=== PATIENT | male | born 1935 | race Caucasian/White ===

== ENCOUNTER 2018-04-26 14:14 | Outpatient (CLI) | payer MEDICARE ==
[2018-04-26 18:12] LABS: ALBUMIN 4.2 g/dL (3.2-5.5); ALBUMIN/GLOBULIN RATIO 1.6 (1.0-2.2); BILIRUBIN,TOTAL 0.8 mg/dL (0.2-1.0); CREATININE 0.8 mg/dL (0.6-1.2); TOTAL PROTEIN 6.9 g/dL (6.7-8.2)
== END 2018-04-26 14:15 | disposition home or self-care (01) ==
LOC: LAB.F 14:14
PROVIDERS: ATTEND Internal Medicine
DX: I10 Essential (primary) hypertension (principal)
CPT/HCPCS: 36415; 80053

== ENCOUNTER 2019-12-06 08:00 | Outpatient (CLI) | payer MEDICARE ==
[2019-12-06 18:03] LABS: BASOPHILS # (AUTO) 0.1 10^3/uL (0.0-0.1); BASOPHILS % (AUTO) 1.1 %; EOSINOPHILS # (AUTO) 0.1 10^3/uL (0.0-0.7); HGB - HEMOGLOBIN 14.5 g/dL (14.0-18.0); LYMPHOCYTES # (AUTO) 1.7 10^3/uL (1.5-3.5); LYMPHOCYTES % (AUTO) 36.4 %; MEAN CORPUSCULAR HEMOGLOBIN 31.1 pg (27.0-31.0); MEAN CORPUSCULAR HGB CONC 32.6 g/dL (32.0-36.0); MEAN CORPUSCULAR VOLUME 95.5 fL (80.0-94.0); MEAN PLATELET VOLUME 10.9 fL (7.4-11.4); MONOCYTES # (AUTO) 0.8 10^3/uL (0.0-1.0); NEUTROPHILS % (AUTO) 43.1 %; PLT - PLATELET COUNT 214 10^3/uL (130-450); RED BLOOD COUNT 4.66 10^6/uL (4.70-6.10); RED CELL DISTRIBUTION WIDTH 12.1 % (12.0-15.0); WHITE BLOOD COUNT 4.6 x10^3/uL (4.8-10.8)
[2019-12-06 18:20] LABS: ALBUMIN 3.9 g/dL (3.2-5.5); ALBUMIN/GLOBULIN RATIO 1.4 (1.0-2.2); ALKALINE PHOSPHATASE 50 IU/L (42-121); ALT ALANINE AMINOTRANSFERASE 13 IU/L (10-60); AST ASPARTATE AMINOTRANSFERASE 26 IU/L (10-42); BILIRUBIN,TOTAL 1.2 mg/dL (0.2-1.0); BUN - BLOOD UREA NITROGEN 16 mg/dL (6-20); CARBON DIOXIDE - CO2 28 mmol/L (21-32); CHLORIDE 101 mmol/L (101-111); CHOLESTEROL 146 mg/dL; CREATININE 0.9 mg/dL (0.6-1.2); GLUCOSE 107 mg/dL (70-100); HDL CHOLESTEROL 48 mg/dL; LDL CHOLESTEROL,CALCULATED 87 mg/dL; LDL/HDL RATIO 1.8 (<3.6); SODIUM 137 mmol/L (135-145); TOTAL PROTEIN 6.7 g/dL (6.7-8.2); VLDL CHOLESTEROL 11 mg/dL
== END 2019-12-06 23:59 | disposition home or self-care (01) ==
LOC: LAB.WCP 08:00
PROVIDERS: ATTEND Physician Assistant
DX: I10 Essential (primary) hypertension (principal); Z79.899 Other long term (current) drug therapy; R53.83 Other fatigue
CPT/HCPCS: 36415; 80053; 80061; 83721; 84443; 85025

== ENCOUNTER 2020-03-06 08:40 | Emergency (ER) | payer MEDICARE ==
--- NOTE | 2020-03-06 08:47 | ED Physician Documentation ---
History of Present Illness - Stated complaint Stated Complaint: RAPID HEART BEAT - History obtained from History obtained from: Patient - History of Present Illness Timing: Yesterday - Additonal information Additional information: 84-year-old male went to take his blood pressure yesterday morning and noted that his heart rate was 150. He has felt a little bit faint and is not doing as much as he normally does he has not had chest pain associated with this. He has not had a rapid heart rate like this previously and does not have any prior history of atrial fibrillation. He has a history of hypertension and has recently been changed to losartan from enalapril. He takes some hydrochlorothiazide as well. Review of Systems Constitutional: denies: Fever Eyes: denies: Decreased vision Ears: denies: Ear pain Nose: denies: Congestion Throat: denies: Sore throat Cardiac: reports: Chest pain / pressure, Palpitations. denies: Pedal edema, Calf pain Respiratory: reports: Cough. denies: Dyspnea GI: denies: Abdominal Pain, Nausea, Vomiting : denies: Dysuria, Frequency, Hesitancy Skin: denies: Rash Musculoskeletal: denies: Neck pain, Back pain, Extremity pain PD PAST MEDICAL HISTORY - Present Medications Home Medications: Ambulatory Orders Medication Instructions Recorded Confirmed Brimonidine 0.2% Ophth Drops 1 drops OP DAILY 03/06/20 03/06/20 [Alphagan P 0.2% Ophth Drops] Dorzolamide 2% Ophth Drops 1 drops OP DAILY 03/06/20 03/06/20 [Trusopt 2% Ophth Drops] Hydrochlorothiazide 12.5 mg PO DAILY 03/06/20 03/06/20 Loratadine [Claritin] 10 mg PO PRN PRN 03/06/20 03/06/20 Losartan Potassium 50 mg PO DAILY 03/06/20 03/06/20 - Allergies Allergies/Adverse Reactions: Allergies Allergy/AdvReac Type Severity Reaction Status Date / Time No Known Drug Allergies Allergy Verified 03/06/20 09:03 PD ED PE NORMAL - Vitals Vital signs reviewed: Yes (tachy, tachypneic and hypertensive ) - General General: Alert and oriented X 3, No acute distress, Well developed/nourished - HEENT HEENT: Atraumatic, PERRL, EOMI - Neck Neck: Supple, no meningeal sign, No bony TTP - Cardiac Cardiac: No murmur, Other (tachy to 150) - Respiratory Respiratory: No respiratory distress, Clear bilaterally - Abdomen Abdomen: Normal bowel sounds, Soft, Non tender, Non distended, No organomegaly - Back Back: No CVA TTP, No spinal TTP - Derm Derm: Normal color, Warm and dry, No rash - Extremities Extremities: No deformity, No edema - Neuro Neuro: Alert and oriented X 3, chief unit forester 2-12 intact, No motor deficit, No sensory deficit, Normal speech Eye Opening: Spontaneous Motor: Obeys Commands Verbal: Oriented GCS Score: 15 - Psych Psych: Normal mood, Normal affect Results - Vitals Vitals: Vital Signs - 24 hr 03/06/20 03/06/20 03/06/20 08:52 09:05 09:10 Temperature 36.3 C L Heart Rate 152 H 133 H 76 Respiratory 28 H 18 14 Rate Blood Pressure 169/120 H 143/94 H 116/74 O2 Saturation 98 96 96 03/06/20 03/06/20 03/06/20 09:14 09:16 09:21 Temperature Heart Rate 77 78 124 H Respiratory 16 16 14 Rate Blood Pressure 115/76 112/97 H 131/84 H O2 Saturation 94 94 94 03/06/20 03/06/20 03/06/20 09:27 09:31 09:42 Temperature Heart Rate 140 H 76 69 Respiratory 18 18 22 Rate Blood Pressure 136/91 H 148/81 H 121/72 O2 Saturation 93 94 96 03/06/20 03/06/20 03/06/20 09:48 10:05 10:43 Temperature Heart Rate 64 66 87 Respiratory 19 20 16 Rate Blood Pressure 124/82 H 111/84 H 124/81 H O2 Saturation 95 93 95 03/06/20 11:35 Temperature 36.5 C Heart Rate 80 Respiratory 20 Rate Blood Pressure 145/90 H O2 Saturation 96 Oxygen O2 Source Room air - EKG (time done) 0855 Rate: Rate (enter#) (128) Rhythm: Atrial flutter Ischemia: Q waves Compare to prior EKG: Old EKG unavailable Computer interpretation: Disagree with computer (I do not see ventricular complexes suggesting V-tach looks like flutter waves. ) - Labs Labs: Laboratory Tests 03/06/20 03/06/20 03/06/20 08:49 08:49 08:49 WBC 7.8 RBC 5.21 Hgb 16.6 Hct 49.4 MCV 94.8 H MCH 31.9 H MCHC 33.6 RDW 12.0 Plt Count 228 MPV 10.4 Neut # (Auto) 3.6 Lymph # (Auto) 2.7 Cameron # (Auto) 1.2 H Eos # (Auto) 0.2 Baso # (Auto) 0.1 Absolute Nucleated RBC 0.00 Nucleated RBC % 0.0 Sodium 137 Potassium 3.4 L Chloride 99 L Carbon Dioxide 27 Anion Gap 11.0 BUN 18 Creatinine 1.0 Estimated GFR (MDRD) 72 L Glucose 128 H Calcium 9.3 Total Bilirubin 0.9 AST 26 ALT 16 Alkaline Phosphatase 62 Troponin I High Sens 10.4 B-Natriuretic Peptide Total Protein 7.1 Albumin 4.2 Globulin 2.9 Albumin/Globulin Ratio 1.4 Lipase 51 03/06/20 08:49 WBC RBC Hgb Hct MCV MCH MCHC RDW Plt Count MPV Neut # (Auto) Lymph # (Auto) Cameron # (Auto) Eos # (Auto) Baso # (Auto) Absolute Nucleated RBC Nucleated RBC % Sodium Potassium Chloride Carbon Dioxide Anion Gap BUN Creatinine Estimated GFR (MDRD) Glucose Calcium Total Bilirubin AST ALT Alkaline Phosphatase Troponin I High Sens B-Natriuretic Peptide 412 H Total Protein Albumin Globulin Albumin/Globulin Ratio Lipase - Rads (name of study) chest Radiology: Prelim report reviewed (Impression: A definite source of chest pain is not found. No comparison for review. Slight interstitial prominence noted within the lung parenchyma, perhaps reflecting prior smoking.), EMP read indepedently, See rad report PD MEDICAL DECISION MAKING - ED course Complexity details: reviewed results, re-evaluated patient, considered differential, d/w patient ED course: 84-year-old male on losartan and hydrochlorothiazide has developed atrial flutter I am not able to see his inferior vena cava with him with the ultrasound at the bedside and so he is administered a liter of saline he is given some magnesium and some diltiazem. His heart rate stabilizes at the 60-70 range and he is feeling improved but with persistent atrial flutter. He is symptom free with flutter and a normal rate. He did not know his heart was fast yesterday until he checked his blood pressure and found the rapid heart rate. He waited one day and it did not resolve. l have consulted Dr. Luna at [facility] and he requests we transfer to the hospitalist with the plan to cardiovert after trans esophageal echo. Dr. Ravi is the hospitalist. Departure - Departure Disposition: 02 Transfer Acute Care Hosp Clinical Impression: Atrial flutter with rapid ventricular response Condition: Stable
[2020-03-06] MEDS ORDERED: SODIUM CHLORIDE 0.9% 1,000 ML IV STA (08:59)
[2020-03-06] MEDS ORDERED: diltiaZEM INJ 5 MG/ML VIAL IVP STA (09:00)
[2020-03-06] MEDS ORDERED: MAGNESIUM SULFATE 2 GRAM 2 GM/50 ML BAG IV ONE (09:01)
[2020-03-06 09:07] LABS: BASOPHILS # (AUTO) 0.1 10^3/uL (0.0-0.1); BASOPHILS % (AUTO) 0.9 %; EOSINOPHILS # (AUTO) 0.2 10^3/uL (0.0-0.7); HGB - HEMOGLOBIN 16.6 g/dL (14.0-18.0); LYMPHOCYTES # (AUTO) 2.7 10^3/uL (1.5-3.5); LYMPHOCYTES % (AUTO) 34.4 %; MEAN CORPUSCULAR HEMOGLOBIN 31.9 pg (27.0-31.0); MEAN CORPUSCULAR HGB CONC 33.6 g/dL (32.0-36.0); MEAN CORPUSCULAR VOLUME 94.8 fL (80.0-94.0); MEAN PLATELET VOLUME 10.4 fL (7.4-11.4); MONOCYTES # (AUTO) 1.2 10^3/uL (0.0-1.0); MONOCYTES % (AUTO) 15.5 %; NEUTROPHILS # (AUTO) 3.6 10^3/uL (1.5-6.6); NEUTROPHILS % (AUTO) 46.6 %; PLT - PLATELET COUNT 228 10^3/uL (130-450); RED BLOOD COUNT 5.21 10^6/uL (4.70-6.10); WHITE BLOOD COUNT 7.8 x10^3/uL (4.8-10.8)
[2020-03-06 09:18] LABS: ALBUMIN 4.2 g/dL (3.2-5.5); ALBUMIN/GLOBULIN RATIO 1.4 (1.0-2.2); BILIRUBIN,TOTAL 0.9 mg/dL (0.2-1.0); CALCIUM 9.3 mg/dL (8.5-10.3); TOTAL PROTEIN 7.1 g/dL (6.7-8.2)
--- NOTE | 2020-03-06 09:37 | XRAY Report ---
PROCEDURE: Chest 1 View X-Ray INDICATIONS: chest pain TECHNIQUE: One view of the chest was acquired. COMPARISON: None FINDINGS: Surgical changes and devices: None. Lungs and pleura: No pleural effusions or pneumothorax. Lungs are clear except for mild interstitia l prominence. Mediastinum: Mediastinal contours appear normal. Heart size is normal. Bones and chest wall: No suspicious bony lesions. Overlying soft tissues appear unremarkable. IMPRESSION: A definite source of chest pain is not found. No comparison for review. Slight interstitial prominenc e noted within the lung parenchyma, perhaps reflecting prior smoking. Reviewed by: Francis Pedersen MD on 03/06/2020 9:36 AM PST Approved by: Francis Pedersen MD on 03/06/2020 9:36 AM PST Station ID: [id number]
[2020-03-06 11:40] VITALS: BP 145/90
[2020-03-06 11:48] LABS: C. PNEUMONIAE- RESP PCR PANEL NOT DETECTED
== END 2020-03-06 11:40 | disposition short-term general hospital (02) ==
LOC: ED 08:40
DX: I48.92 Unspecified atrial flutter (principal); R06.82 Tachypnea, not elsewhere classified; I10 Essential (primary) hypertension; Z20.822 Contact with and (suspected) exposure to COVID-19
CPT/HCPCS: 0202U; 36415; 80053; 83690; 83880; 84484; 85025; 93005; 96365; 96375; 99284

== ENCOUNTER 2020-03-06 11:41 | Outpatient (CLI) | payer MEDICARE | END 2020-03-06 11:42 | disposition short-term general hospital (02) | LOC: EMS 11:41 | PROVIDERS: ATTEND Surgery | DX: I48.92 Unspecified atrial flutter (principal) | CPT/HCPCS: A0425; A0426 ==

== ENCOUNTER 2020-03-28 16:09 | Emergency (ER) | payer MEDICARE ==
[2020-03-28 16:39] LABS: BASOPHILS % (AUTO) 0.8 %; EOSINOPHILS # (AUTO) 0.1 10^3/uL (0.0-0.7); EOSINOPHILS % (AUTO) 1.8 %; HGB - HEMOGLOBIN 13.7 g/dL (14.0-18.0); LYMPHOCYTES % (AUTO) 20.8 %; MEAN CORPUSCULAR HEMOGLOBIN 32.5 pg (27.0-31.0); MEAN CORPUSCULAR HGB CONC 33.4 g/dL (32.0-36.0); MEAN CORPUSCULAR VOLUME 97.4 fL (80.0-94.0); MEAN PLATELET VOLUME 10.1 fL (7.4-11.4); MONOCYTES # (AUTO) 0.8 10^3/uL (0.0-1.0); MONOCYTES % (AUTO) 15.6 %; NEUTROPHILS % (AUTO) 60.4 %; PLT - PLATELET COUNT 184 10^3/uL (130-450); RED BLOOD COUNT 4.21 10^6/uL (4.70-6.10); RED CELL DISTRIBUTION WIDTH 12.5 % (12.0-15.0)
[2020-03-28 16:55] LABS: ALBUMIN 3.8 g/dL (3.2-5.5); ALBUMIN/GLOBULIN RATIO 1.6 (1.0-2.2); BILIRUBIN,TOTAL 0.7 mg/dL (0.2-1.0); CALCIUM 8.8 mg/dL (8.5-10.3); CREATININE 0.8 mg/dL (0.6-1.2); MAGNESIUM 2.3 mg/dL (1.7-2.8); TOTAL PROTEIN 6.2 g/dL (6.7-8.2)
--- NOTE | 2020-03-28 17:03 | XRAY Report ---
PROCEDURE: Chest 1 View X-Ray INDICATIONS: Chest pain TECHNIQUE: One view of the chest was acquired. COMPARISON: Chest radiograph 03/06/2020. FINDINGS: Surgical changes and devices: None. Lungs and pleura: No pleural effusions or pneumothorax. Lungs are clear. Mediastinum: Mediastinal contours appear normal. Heart size is exaggerated by AP technique and mild ly low lung volumes. Bones and chest wall: No suspicious bony lesions. Overlying soft tissues appear unremarkable. IMPRESSION: No acute cardiopulmonary abnormality. Reviewed by: Robert Wong MD on 03/28/2020 5:02 PM PST Approved by: Robert Wong MD on 03/28/2020 5:02 PM [facility] Station ID: [id number]
--- NOTE | 2020-03-28 18:53 | ED Physician Documentation ---
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 Patient denies cough, fever, nausea or vomiting, diaphoresis or back pain.no prior history of ME. no prior history of cardiac testing per . patient is scheduled for electrical cardioversion in 1 week. Review of Systems Ten Systems: 10 systems reviewed and negative Constitutional: denies: Fever, Chills Cardiac: reports: Chest pain / pressure Respiratory: reports: Dyspnea GI: denies: Abdominal Pain, Nausea PD PAST MEDICAL HISTORY - Past Medical History Past Medical History: Yes Cardiovascular: Hypertension, Atrial fibrillation Respiratory: None Neuro: None Endocrine/Autoimmune: None GI: None HEENT: Chronic vision loss, Other Psych: None Musculoskeletal: None Derm: None - Past Surgical History Past Surgical History: Yes - Present Medications Home Medications: Ambulatory Orders Medication Instructions Recorded Confirmed Brimonidine 0.2% Ophth Drops 1 drops OP DAILY 03/06/20 03/28/20 [Alphagan P 0.2% Ophth Drops] Hydrochlorothiazide 12.5 mg PO DAILY 03/06/20 03/28/20 Loratadine [Claritin] 10 mg PO PRN PRN 03/06/20 03/28/20 Losartan Potassium 50 mg PO DAILY 03/06/20 03/28/20 Apixaban [Eliquis] 1 tab PO DAILY 03/28/20 03/28/20 Metoprolol Succinate [Toprol Xl] 1 tab PO DAILY 03/28/20 03/28/20 - Allergies Allergies/Adverse Reactions: Allergies Allergy/AdvReac Type Severity Reaction Status Date / Time No Known Drug Allergies Allergy Verified 03/06/20 09:03 - Social History Does the pt smoke?: No Smoking Status: Never smoker Does the pt drink ETOH?: Yes Does the pt have substance abuse?: No - Immunizations Immunizations are current?: Yes PD ED PE NORMAL - Vitals Vital signs reviewed: Yes - General General: Alert and oriented X 3, No acute distress, Other (elderly appearing) - HEENT HEENT: Atraumatic, PERRL, EOMI - Neck Neck: Supple, no meningeal sign - Cardiac Cardiac: Other (tachycardic rate, irregular rhythm) - Respiratory Respiratory: No respiratory distress, Clear bilaterally - Abdomen Abdomen: Non tender, Non distended - Male Male : Deferred - Rectal Rectal: Deferred - Back Back: No CVA TTP - Derm Derm: Normal color - Extremities Extremities: No deformity - Neuro Neuro: Alert and oriented X 3 - Psych Psych: Normal mood, Normal affect Results - Vitals Vitals: Vital Signs - 24 hr 03/28/20 03/28/20 03/28/20 16:15 16:57 17:52 Temperature 36.5 C Heart Rate 103 H 90 89 Respiratory 20 18 Rate Blood Pressure 160/101 H 161/101 H 155/97 H O2 Saturation 95 98 03/28/20 03/28/20 18:18 19:02 Temperature Heart Rate 73 85 Respiratory 18 Rate Blood Pressure 143/100 H 148/102 H O2 Saturation 95 Oxygen O2 Source Room air - EKG (time done) 1619 Rate: Rate (enter#) (92) Rhythm: Atrial fibrillation Ischemia: Normal ST segments - Labs Labs: Laboratory Tests 03/28/20 03/28/20 03/28/20 16:34 16:34 16:34 WBC 5.0 RBC 4.21 L Hgb 13.7 L Hct 41.0 L MCV 97.4 H MCH 32.5 H MCHC 33.4 RDW 12.5 Plt Count 184 MPV 10.1 Neut # (Auto) 3.0 Lymph # (Auto) 1.0 L Petroleum # (Auto) 0.8 Eos # (Auto) 0.1 Baso # (Auto) 0.0 Absolute Nucleated RBC 0.00 Nucleated RBC % 0.0 Sodium 135 Potassium 3.9 Chloride 100 L Carbon Dioxide 25 Anion Gap 10.0 BUN 17 Creatinine 0.8 Estimated GFR (MDRD) 93 Glucose 113 H Calcium 8.8 Magnesium 2.3 Total Bilirubin 0.7 AST 25 ALT 23 Alkaline Phosphatase 54 Troponin I High Sens 4.1 Total Protein 6.2 L Albumin 3.8 Globulin 2.4 Albumin/Globulin Ratio 1.6 Lipase 45 PD MEDICAL DECISION MAKING - ED course ED course: 84-year-old man with past medical history of high blood pressure, new onset afib, presents with chest pain of concerning etiology. EKG rate controlled afib, trop negative, cxr nonfocal. no active chest pain in ed. d/w hospitalist Dr. Cuadra who accepted the patient and will endorse to nighttime hospitalist. Departure - Departure Disposition: 66 [facility] DC/Xfer Clinical Impression: Chest pain, Dyspnea Condition: Stable
[2020-03-28 19:03] VITALS: BP 148/102
[2020-03-28] MEDS: ASPIRIN 325 MG TABLET PO STA ×2 (19:22→19:28)
== END 2020-03-28 19:34 | disposition left against medical advice (07) ==
LOC: ED 16:09
DX: R07.9 Chest pain, unspecified (principal); R06.00 Dyspnea, unspecified; I10 Essential (primary) hypertension; I48.91 Unspecified atrial fibrillation; Z79.01 Long term (current) use of anticoagulants
CPT/HCPCS: 36415; 80053; 83690; 83735; 84484; 85025; 93005; 99284

== ENCOUNTER 2020-04-08 16:59 | Outpatient (CLI) | payer MEDICARE | END 2020-04-08 17:00 | disposition home or self-care (01) | LOC: COV 16:59 | PROVIDERS: ATTEND Internal Medicine Cardiovascular Disease | DX: Z01.812 Encounter for preprocedural laboratory examination (principal); I48.19 Other persistent atrial fibrillation; Z20.822 Contact with and (suspected) exposure to COVID-19 ==

== ENCOUNTER 2020-06-07 08:00 | Outpatient (CLI) | payer MEDICARE ==
[2020-06-07 17:41] LABS: BASOPHILS % (AUTO) 0.6 %; EOSINOPHILS # (AUTO) 0.1 10^3/uL (0.0-0.7); EOSINOPHILS % (AUTO) 2.3 %; HCT - HEMATOCRIT 44.5 % (42.0-52.0); HGB - HEMOGLOBIN 14.9 g/dL (14.0-18.0); LYMPHOCYTES # (AUTO) 1.7 10^3/uL (1.5-3.5); LYMPHOCYTES % (AUTO) 32.6 %; MEAN CORPUSCULAR HEMOGLOBIN 31.4 pg (27.0-31.0); MEAN CORPUSCULAR HGB CONC 33.5 g/dL (32.0-36.0); MEAN CORPUSCULAR VOLUME 93.9 fL (80.0-94.0); MEAN PLATELET VOLUME 11.2 fL (7.4-11.4); MONOCYTES # (AUTO) 0.8 10^3/uL (0.0-1.0); NEUTROPHILS # (AUTO) 2.5 10^3/uL (1.5-6.6); NEUTROPHILS % (AUTO) 47.9 %; PLT - PLATELET COUNT 204 10^3/uL (130-450); RED BLOOD COUNT 4.74 10^6/uL (4.70-6.10); WHITE BLOOD COUNT 5.2 x10^3/uL (4.8-10.8)
[2020-06-07 18:10] LABS: BUN - BLOOD UREA NITROGEN 19 mg/dL (6-20); CALCIUM 8.8 mg/dL (8.5-10.3); CARBON DIOXIDE - CO2 27 mmol/L (21-32); CHLORIDE 99 mmol/L (101-111); CHOL/HDL RATIO 2.9 (<5.0); CHOLESTEROL 135 mg/dL; CREATININE 0.8 mg/dL (0.6-1.2); GFR - MDRD 93 (>89); GLUCOSE 121 mg/dL (70-100); HDL CHOLESTEROL 46 mg/dL; LDL CHOLESTEROL,CALCULATED 71 mg/dL; LDL/HDL RATIO 1.5 (<3.6); SODIUM 135 mmol/L (135-145); TRIGLYCERIDES 89 mg/dL; VLDL CHOLESTEROL 18 mg/dL
== END 2020-06-07 23:59 | disposition home or self-care (01) ==
LOC: LAB.WCP 08:00
PROVIDERS: ATTEND Internal Medicine Cardiovascular Disease
DX: I10 Essential (primary) hypertension (principal); Z79.01 Long term (current) use of anticoagulants
CPT/HCPCS: 36415; 80048; 80061; 83721; 85025

== ENCOUNTER 2020-06-25 17:11 | Outpatient (CLI) | payer MEDICARE ==
--- NOTE | 2020-06-26 10:19 | XRAY Report ---
PROCEDURE: Knee 3 View RT INDICATIONS: R KNEE PX TECHNIQUE: 3 views of the right knee(s) were acquired. COMPARISON: None. FINDINGS: Bones: No fractures or dislocations. No suspicious bony lesions. Severe patellofemoral joint degen eration. There is also moderate lateral joint space narrowing. 1.8 cm loose body projects in the post erior joint spaces. Scattered subchondral sclerosis and spurring. There is patella cornell Soft tissues: No joint effusion. No suspicious soft tissue calcifications. IMPRESSION: Severe degenerative joint disease, and patella cornell. Loose body projects in the posterior joint space measuring 1.8 cm. Reviewed by: Grady Nelson MD on 06/26/2020 10:18 AM PDT Approved by: Grady Nelson MD on 06/26/2020 10:18 AM PDT Station ID: [id number]
== END 2020-06-25 17:12 | disposition home or self-care (01) ==
LOC: DI.N 17:11
PROVIDERS: ATTEND Physician Assistant Medical
DX: M17.11 Unilateral primary osteoarthritis, right knee (principal); R93.6 Abnormal findings on diagnostic imaging of limbs

== ENCOUNTER 2020-07-01 08:00 | Outpatient (CLI) | payer MEDICARE ==
[2020-07-01 12:38] LABS: ALBUMIN 4.2 g/dL (3.2-5.5); ALBUMIN/GLOBULIN RATIO 1.8 (1.0-2.2); BILIRUBIN,TOTAL 1.4 mg/dL (0.2-1.0); CALCIUM 9.4 mg/dL (8.5-10.3); CREATININE 0.8 mg/dL (0.6-1.2); POTASSIUM 4.3 mmol/L (3.5-5.0); TOTAL PROTEIN 6.6 g/dL (6.7-8.2)
[2020-07-01 12:48] LABS: THYROID STIMULATING HORMONE 5.66 uIU/mL (0.34-5.60)
[2020-07-01 13:46] LABS: FREE T4 (FREE THYROXINE) 0.87 ng/dL (0.58-1.64)
== END 2020-07-01 23:59 | disposition home or self-care (01) ==
LOC: LAB.WCP 08:00
PROVIDERS: ATTEND Physician Assistant Medical
DX: I48.91 Unspecified atrial fibrillation (principal)
CPT/HCPCS: 36415; 80053; 84439; 84443

== ENCOUNTER 2020-07-05 14:04 | Outpatient (CLI) | payer MEDICARE ==
[2020-07-05 18:51] LABS: ESTIMATED AVERAGE GLUCOSE 120 mg/dL (70-100); HEMOGLOBIN A1c% 5.8 % (4.27-6.07)
== END 2020-07-05 23:59 | disposition home or self-care (01) ==
LOC: LAB.N 14:04
PROVIDERS: ATTEND Family Medicine
DX: R42 Dizziness and giddiness (principal)
CPT/HCPCS: 36415; 83036

== ENCOUNTER 2020-08-09 07:00 | Outpatient (CLI) | payer MEDICARE ==
[2020-08-09 21:30] LABS: THYROID STIMULATING HORMONE 2.59 uIU/mL (0.34-5.60)
== END 2020-08-09 23:59 | disposition home or self-care (01) ==
LOC: LAB.N 07:00
PROVIDERS: ATTEND Physician Assistant Medical
DX: R53.83 Other fatigue (principal)
CPT/HCPCS: 36415; 84443

== ENCOUNTER 2020-08-30 13:18 | Outpatient (CLI) | payer MEDICARE ==
[2020-08-30 17:35] LABS: BASOPHILS % (AUTO) 0.7 %; EOSINOPHILS # (AUTO) 0.2 10^3/uL (0.0-0.7); EOSINOPHILS % (AUTO) 2.7 %; HCT - HEMATOCRIT 43.4 % (42.0-52.0); HGB - HEMOGLOBIN 14.8 g/dL (14.0-18.0); LYMPHOCYTES # (AUTO) 1.6 10^3/uL (1.5-3.5); LYMPHOCYTES % (AUTO) 27.6 %; MEAN CORPUSCULAR HEMOGLOBIN 32.8 pg (27.0-31.0); MEAN CORPUSCULAR HGB CONC 34.1 g/dL (32.0-36.0); MEAN CORPUSCULAR VOLUME 96.2 fL (80.0-94.0); MEAN PLATELET VOLUME 11.6 fL (7.4-11.4); MONOCYTES # (AUTO) 0.9 10^3/uL (0.0-1.0); MONOCYTES % (AUTO) 14.7 %; NEUTROPHILS # (AUTO) 3.2 10^3/uL (1.5-6.6); NEUTROPHILS % (AUTO) 53.6 %; PLT - PLATELET COUNT 218 10^3/uL (130-450); RED BLOOD COUNT 4.51 10^6/uL (4.70-6.10); RED CELL DISTRIBUTION WIDTH 12.5 % (12.0-15.0); WHITE BLOOD COUNT 5.9 x10^3/uL (4.8-10.8)
[2020-08-30 17:54] LABS: CALCIUM 8.9 mg/dL (8.5-10.3); CREATININE 0.8 mg/dL (0.6-1.2)
== END 2020-08-30 23:59 | disposition home or self-care (01) ==
LOC: LAB.WCP 13:18
PROVIDERS: ATTEND Internal Medicine Cardiovascular Disease
DX: I10 Essential (primary) hypertension (principal); I42.9 Cardiomyopathy, unspecified; I48.19 Other persistent atrial fibrillation
CPT/HCPCS: 36415; 80048; 84443; 85025

== ENCOUNTER 2021-09-10 17:25 | Outpatient (CLI) | payer MEDICARE ==
[2021-09-10 20:44] LABS: BILIRUBIN,URINE NEGATIVE (NEGATIVE); GLUCOSE, URINE (UA) NEGATIVE (NEGATIVE); KETONES,URINE (UA) TRACE mg/dL (NEGATIVE); LEUKOCYTE ESTERASE, URINE NEGATIVE (NEGATIVE); NITRITE,URINE NEGATIVE (NEGATIVE); OCCULT BLOOD,URINE LARGE (NEGATIVE); PH,URINE 5.5 PH (5.0-7.5); PROTEIN,URINE TRACE mg/dL (NEGATIVE); UROBILINOGEN,URINE 0.2 (NORMAL) E.U./dL (NORMAL)
[2021-09-10 20:56] LABS: BACTERIA,URINE Rare /HPF (None Seen); CLARITY,URINE HAZY (CLEAR); MUCUS,URINE Few Strands; RBC,URINE TNTC /HPF (0-5); SQUAMOUS EPITHELIAL CELL,UR RARE Squamous (<= Few); WBC,URINE 0-3 /HPF (0-3)
== END 2021-09-10 17:26 | disposition home or self-care (01) ==
LOC: LAB.N 17:25
PROVIDERS: ATTEND Family Medicine
DX: R30.0 Dysuria (principal); R31.9 Hematuria, unspecified
CPT/HCPCS: 81001; 87086

== ENCOUNTER 2021-10-13 10:45 | Outpatient (CLI) | payer MEDICARE ==
--- NOTE | 2021-10-13 16:49 | MRI Report ---
PROCEDURE: Knee RT W/O INDICATIONS: RIGHT KNEE PAIN TECHNIQUE: Noncontrast sagittal PD fast spin echo and T2 fast spin echo with fat saturation, sagittal 3-D gradie nt sequence with fat saturation; coronal T1 spin echo and PD fast spin echo with fat saturation, and axial PD fast spin echo with fat saturation through the knee. COMPARISON: None. FINDINGS: Image quality: Excellent. Menisci: Medial meniscus is intact. Linear oblique high signal intensity traverses the inner, middle, and peripheral thirds of the anterior horn lateral meniscus, demonstrating inferior articular surfac e extension, indicating oblique tearing. Cruciate ligaments: The anterior and posterior cruciate ligaments appear intact. Medial structures: The medial collateral ligament appears intact. Visualized portions of the pes ans erinus tendons appear normal. Small amount of medial bursal fluid. Lateral structures: The lateral collateral ligament demonstrates mild T2 signal elevation at the fem oral origin. The long and short heads of the biceps femoris tendon appear intact. The popliteus tend on appears normal. Iliotibial band appears normal. Anterior structures: The quadriceps and patellar tendons appear intact. Lateral patellar subluxation is present. Moderate edema within the superolateral aspect of the infrapatellar fat pad. Bones and cartilage: No bone marrow contusions or fractures. There is mild subchondral degenerative marrow edema within the lateral patellar facet and lateral femoral trochlea femoral trochlea. Moderat e tricompartmental periarticular osteophyte formation is present. There is moderate articular cartila ge loss diffusely overlying the weightbearing aspects of the medial femoral condyle and medial tibial plateau. Severe articular cartilage loss diffusely overlies the weightbearing aspects of the lateral femoral condyle and lateral tibial plateau. Severe articular cartilage loss diffusely overlies the l ateral patellar facet and lateral femoral trochlea. Joint space: There is a moderate knee joint effusion and a moderate Norris's cyst. There is an intra -articular loose body within the superior aspect of the Norris's cyst, measuring 24 mm. Normal appeari ng synovial plicae are incidentally noted. IMPRESSION: 1. Tricompartmental osteoarthritis with associated articular cartilage loss. 2. Medial bursitis. 3. Partial-thickness lateral collateral ligament tear. 4. Lateral meniscal tear. 5. Knee joint effusion, Norris's cyst, and intra-articular loose body. Reviewed by: Ovidio Moulton MD on 10/13/2021 4:48 PM PDT Approved by: Ovidio Moulton MD on 10/13/2021 4:48 PM PDT Station ID: [id number]
== END 2021-10-13 10:46 | disposition home or self-care (01) ==
LOC: DI 10:45
PROVIDERS: ATTEND Orthopaedic Surgery
DX: M17.11 Unilateral primary osteoarthritis, right knee (principal); M70.51 Other bursitis of knee, right knee; S83.421A Sprain of lateral collateral ligament of right knee, initial encounter; S83.281A Other tear of lateral meniscus, current injury, right knee, initial encounter; M25.461 Effusion, right knee; M23.41 Loose body in knee, right knee

== ENCOUNTER 2021-10-23 15:24 | Outpatient (CLI) | payer MEDICARE ==
[2021-10-23 18:22] LABS: CREATININE 0.8 mg/dL (0.6-1.2)
== END 2021-10-23 15:25 | disposition home or self-care (01) ==
LOC: LAB.N 15:24
PROVIDERS: ATTEND Physician Assistant Medical
DX: R31.21 Asymptomatic microscopic hematuria (principal)
CPT/HCPCS: 36415; 82565; 84520

== ENCOUNTER 2021-10-31 13:02 | Outpatient (CLI) | payer MEDICARE ==
--- NOTE | 2021-10-31 16:58 | CT Report ---
PROCEDURE: IVP INDICATIONS: HEMATURIA CONTRAST: IV CONTRAST: Optiray 320 ml: 100 PO CONTRAST: *NO PO CONTRAST TECHNIQUE: After the administration of oral and intravenous contrast, 5 mm thick sections acquired from the diap hragms to the symphysis. 5 mm thick coronal and sagittal reformats were acquired. For radiation dos e reduction, the following was used: automated exposure control, adjustment of mA and/or kV accordin g to patient size. COMPARISON: None. FINDINGS: Image quality: Excellent. Lung bases: There are small calcified granulomas involving both lung bases. Heart size is normal. Urinary system: Both kidneys are normal in size and enhancement. Contrast-filled renal calyces are normal in morphology. Contrast filled portions of both ureters are normal in caliber. There is a sma at-cf-bcjesppo sized bladder diverticulum near the patient's right UVJ. Solid organs: Liver and spleen are normal in size and enhancement. Gallbladder is normal. Biliary system is non dilated. Pancreas enhances normally. No adrenal nodules. Peritoneum and bowel: Bowel loops demonstrate normal wall thickness and caliber. No free fluid or a ir. Nodes and vessels: No retroperitoneal or mesenteric adenopathy by size criteria. Aorta and inferior vena cava are normal in size. There is atherosclerotic calcifications present. Abdominal wall: No ventral hernias. Pelvis: No pathologic free pelvic fluid. Bilateral fat-containing inguinal hernias are noted. Bones: No suspicious bony lesions. No vertebral body compression fractures. IMPRESSION: 1. Dxthy-xv-vueergna size bladder diverticulum near the right UVJ. 2. Atherosclerotic calcifications. 3. Small bilateral fat-containing inguinal hernias. 4. Small calcified granulomas in both lung bases. Reviewed by: Ziggy Llanes MD on 10/31/2021 4:57 PM PDT Approved by: Ziggy Llanes MD on 10/31/2021 4:57 PM PDT Station ID: [id number]
== END 2021-10-31 13:03 | disposition home or self-care (01) ==
LOC: DI 13:02
PROVIDERS: ATTEND Physician Assistant Medical
DX: R31.29 Other microscopic hematuria (principal); N32.3 Diverticulum of bladder; K40.20 Bilateral inguinal hernia, without obstruction or gangrene, not specified as recurrent; R91.8 Other nonspecific abnormal finding of lung field; I70.90 Unspecified atherosclerosis
CPT/HCPCS: 74178; Q9967

== ENCOUNTER 2021-11-13 14:58 | Outpatient (CLI) | payer MEDICARE ==
[2021-11-13 18:25] LABS: THYROID STIMULATING HORMONE 4.84 uIU/mL (0.34-5.60)
[2021-11-13 18:36] LABS: FOLATE 14.36 ng/mL (5.90 - >24.8)
== END 2021-11-13 14:59 | disposition home or self-care (01) ==
LOC: LAB.N 14:58
PROVIDERS: ATTEND Psychiatry & Neurology Neurology
DX: R25.1 Tremor, unspecified (principal); R26.89 Other abnormalities of gait and mobility; E55.9 Vitamin D deficiency, unspecified
CPT/HCPCS: 36415; 82607; 82652; 82746; 84443

== ENCOUNTER 2022-01-07 08:24 | Outpatient (CLI) | payer MEDICARE ==
--- NOTE | 2022-01-07 11:04 | MRI Report ---
PROCEDURE: BRAIN WO INDICATIONS: TREMORS TECHNIQUE: Noncontrast axial T1 spin echo, axial T2 fast spin echo, sagittal and axial FLAIR, coronal T2 fast sp in echo, axial gradient echo, axial diffusion and ADC through the brain. COMPARISON: None. FINDINGS: Image quality: Excellent. CSF Spaces: Basal cisterns are patent. No extra-axial fluid collections. Ventricles are normal in size and shape. Brain: No intracranial masses or hemorrhage. Laboy/white matter interface is normal. Brainstem appe ars normal. Diffusion-weighted images demonstrate no acute ischemic insult. No chronic ischemic ins ults. Normal intravascular flow voids are present. Skull and face: Calvarium has normal marrow signal. Orbits appear normal. Incidental note is made of bilateral lens replacements. Sinuses: There is moderate mucosal thickening seen within the left maxillary sinus and there is mild to moderate mucosal thickening within the left ethmoid air cells. Mild mucosal thickening is seen el sewhere within the paranasal sinuses. No significant abnormal fluid can be seen within the mastoid ai r cells. IMPRESSION: Unremarkable noncontrast intracranial study for age, with brain parenchymal volume loss and chronic s mall vessel ischemic change. No imaging explanation is found for the patient's presenting symptoms. Paranasal sinus disease is seen, which is worst within the left maxillary sinus. Reviewed by: Roberto Conklin MD on 01/07/2022 10:03 AM [facility] Approved by: Roberto Conklin MD on 01/07/2022 10:03 AM [facility] Station ID: [id number]
== END 2022-01-07 08:25 | disposition home or self-care (01) ==
LOC: DI 08:24
PROVIDERS: ATTEND Psychiatry & Neurology Neurology
DX: R25.1 Tremor, unspecified (principal); R26.89 Other abnormalities of gait and mobility; J32.8 Other chronic sinusitis

== ENCOUNTER 2022-04-07 10:20 | Outpatient (CLI) | payer MEDICARE | END 2022-04-07 10:21 | disposition home or self-care (01) | LOC: DI 10:20 | PROVIDERS: ATTEND Physician Assistant | DX: I08.0 Rheumatic disorders of both mitral and aortic valves (principal); I77.810 Thoracic aortic ectasia | CPT/HCPCS: 93306 ==

== ENCOUNTER 2022-04-11 13:30 | Outpatient (CLI) | payer MEDICARE | END 2022-04-11 13:45 | disposition home or self-care (01) | LOC: LAB.N 13:30 | PROVIDERS: ATTEND Physician Assistant Medical | DX: R31.9 Hematuria, unspecified (principal) | CPT/HCPCS: 87086 ==

== ENCOUNTER 2022-09-22 17:14 | Outpatient (CLI) | payer MEDICARE ==
[2022-09-22 20:44] LABS: BASOPHILS % (AUTO) 0.9 %; EOSINOPHILS # (AUTO) 0.1 10^3/uL (0.0-0.7); HCT - HEMATOCRIT 40.4 % (42.0-52.0); HGB - HEMOGLOBIN 13.2 g/dL (14.0-18.0); LYMPHOCYTES # (AUTO) 1.5 10^3/uL (1.5-3.5); LYMPHOCYTES % (AUTO) 32.7 %; MEAN CORPUSCULAR HEMOGLOBIN 31.6 pg (27.0-31.0); MEAN CORPUSCULAR HGB CONC 32.7 g/dL (32.0-36.0); MEAN CORPUSCULAR VOLUME 96.7 fL (80.0-94.0); MONOCYTES # (AUTO) 0.9 10^3/uL (0.0-1.0); MONOCYTES % (AUTO) 20.2 %; NEUTROPHILS % (AUTO) 42.8 %; PLT - PLATELET COUNT 267 10^3/uL (130-450); RED BLOOD COUNT 4.18 10^6/uL (4.70-6.10); RED CELL DISTRIBUTION WIDTH 12.3 % (12.0-15.0); WHITE BLOOD COUNT 4.7 x10^3/uL (4.8-10.8)
[2022-09-22 20:56] LABS: ESTIMATED AVERAGE GLUCOSE 117 mg/dL (70-100); HEMOGLOBIN A1c% 5.7 % (4.27-6.07)
[2022-09-22 21:24] LABS: THYROID STIMULATING HORMONE 4.12 uIU/mL (0.34-5.60)
[2022-09-22 21:32] LABS: ALBUMIN 3.9 g/dL (3.2-5.5); ALBUMIN/GLOBULIN RATIO 1.2 (1.0-2.2); ALKALINE PHOSPHATASE 65 IU/L (42-121); ALT ALANINE AMINOTRANSFERASE 13 IU/L (10-60); AST ASPARTATE AMINOTRANSFERASE 20 IU/L (10-42); BILIRUBIN,TOTAL 0.6 mg/dL (0.2-1.0); BUN - BLOOD UREA NITROGEN 20 mg/dL (6-20); CALCIUM 8.6 mg/dL (8.5-10.3); CARBON DIOXIDE - CO2 28 mmol/L (21-32); CHLORIDE 104 mmol/L (101-111); CHOL/HDL RATIO 3.1 (<5.0); CHOLESTEROL 134 mg/dL; CREATININE 0.8 mg/dL (0.6-1.2); GFR - MDRD 92 (>89); GLUCOSE 93 mg/dL (70-100); HDL CHOLESTEROL 43 mg/dL; LDL CHOLESTEROL,CALCULATED 71 mg/dL; LDL/HDL RATIO 1.7 (<3.6); POTASSIUM 3.9 mmol/L (3.5-5.0); SODIUM 140 mmol/L (135-145); TOTAL PROTEIN 7.1 g/dL (6.7-8.2); TRIGLYCERIDES 100 mg/dL; VLDL CHOLESTEROL 20 mg/dL
== END 2022-09-22 17:15 | disposition home or self-care (01) ==
LOC: LAB.N 17:14
PROVIDERS: ATTEND Family Medicine
DX: I10 Essential (primary) hypertension (principal); N32.3 Diverticulum of bladder; Z79.01 Long term (current) use of anticoagulants; G25.0 Essential tremor; R73.03 Prediabetes; I48.0 Paroxysmal atrial fibrillation; I42.8 Other cardiomyopathies
CPT/HCPCS: 36415; 80053; 80061; 83036; 83721; 83880; 84443; 85025

== ENCOUNTER 2023-03-01 11:15 | Outpatient (CLI) | payer MEDICARE ==
[2023-03-01 17:48] LABS: BASOPHILS # (AUTO) 0.1 10^3/uL (0.0-0.1); BASOPHILS % (AUTO) 0.6 %; EOSINOPHILS # (AUTO) 0.2 10^3/uL (0.0-0.7); EOSINOPHILS % (AUTO) 1.8 %; HCT - HEMATOCRIT 45.2 % (42.0-52.0); LYMPHOCYTES # (AUTO) 1.7 10^3/uL (1.5-3.5); LYMPHOCYTES % (AUTO) 18.4 %; MEAN CORPUSCULAR HEMOGLOBIN 32.1 pg (27.0-31.0); MEAN CORPUSCULAR HGB CONC 33.2 g/dL (32.0-36.0); MEAN CORPUSCULAR VOLUME 96.6 fL (80.0-94.0); MEAN PLATELET VOLUME 11.1 fL (7.4-11.4); MONOCYTES # (AUTO) 1.1 10^3/uL (0.0-1.0); MONOCYTES % (AUTO) 12.1 %; NEUTROPHILS % (AUTO) 66.5 %; PLT - PLATELET COUNT 204 10^3/uL (130-450); RED BLOOD COUNT 4.68 10^6/uL (4.70-6.10); RED CELL DISTRIBUTION WIDTH 12.2 % (12.0-15.0)
[2023-03-01 18:10] LABS: ALBUMIN 4.3 g/dL (3.2-5.5); ALBUMIN/GLOBULIN RATIO 1.8 (1.0-2.2); ALKALINE PHOSPHATASE 45 IU/L (42-121); ALT ALANINE AMINOTRANSFERASE 13 IU/L (10-60); AST ASPARTATE AMINOTRANSFERASE 19 IU/L (10-42); BILIRUBIN,TOTAL 1.1 mg/dL (0.2-1.0); BUN - BLOOD UREA NITROGEN 18 mg/dL (6-20); CALCIUM 9.4 mg/dL (8.5-10.3); CARBON DIOXIDE - CO2 30 mmol/L (21-32); CHLORIDE 102 mmol/L (101-111); CHOL/HDL RATIO 2.6 (<5.0); CHOLESTEROL 111 mg/dL; CREATININE 0.9 mg/dL (0.6-1.3); GFR - MDRD 80 (>89); GLUCOSE 101 mg/dL (74-104); HDL CHOLESTEROL 43 mg/dL; LDL CHOLESTEROL,CALCULATED 49 mg/dL; LDL/HDL RATIO 1.1 (<3.6); POTASSIUM 4.3 mmol/L (3.5-4.5); SODIUM 141 mmol/L (135-145); TOTAL PROTEIN 6.7 g/dL (6.4-8.9); TRIGLYCERIDES 94 mg/dL (48-352); VLDL CHOLESTEROL 19 mg/dL
[2023-03-01 18:20] LABS: THYROID STIMULATING HORMONE 5.61 uIU/mL (0.34-5.60)
[2023-03-01 21:34] LABS: ESTIMATED AVERAGE GLUCOSE 128 mg/dL (70-100); HEMOGLOBIN A1c% 6.1 % (4.27-6.07)
== END 2023-03-01 11:16 | disposition home or self-care (01) ==
LOC: LAB.N 11:15
PROVIDERS: ATTEND Family Medicine
DX: I10 Essential (primary) hypertension (principal); Z12.5 Encounter for screening for malignant neoplasm of prostate; D64.9 Anemia, unspecified; Z79.01 Long term (current) use of anticoagulants; R73.03 Prediabetes; I48.0 Paroxysmal atrial fibrillation; I42.8 Other cardiomyopathies
CPT/HCPCS: 36415; 80053; 80061; 80162; 83036; 84439; 84443; 85025; G0103; 83721; 84153

== ENCOUNTER 2023-07-02 13:22 | Outpatient (CLI) | payer MEDICARE ==
--- NOTE | 2023-07-02 15:59 | CT Report ---
PROCEDURE: Lower Extremity RT WO INDICATIONS: OSTEOARTHRITIS RIGHT KNEE TECHNIQUE: Noncontrast 3-mm axial sections acquired from the distal tibial shaft to the talar dome, with coronal and sagittal reformats. For radiation dose reduction, the following was used: automated exposure c ontrol, adjustment of mA and/or kV according to patient size. COMPARISON: Right knee MRI on 10/13/2021. FINDINGS: Image quality: Excellent. Bones: Status post right total knee arthroplasty, in near-anatomic alignment. No hardware complicati on. Soft tissues: Small suprapatellar effusion. No popliteal cyst. There is a 2.4 cm predominantly fatty lesion with central calcification in the medial posterior knee, adjacent to the origin of the medial head of the gastrocnemius (15:15), previously seen is a large body within the popliteal cyst. Previo usly seen popliteal cyst has resolved. No significant fatty atrophy of the musculature. Impression: 1.Status post right total knee arthroplasty, in near-anatomic alignment. No hardware complication. 2.Small suprapatellar knee effusion. 3.2.4 cm predominantly fatty lesion with central calcification, likely representing a body within a c ollapsed popliteal cyst, grossly unchanged in size dating back to 10/13/2021. Reviewed by: Olivia Root MD on 07/02/2023 3:58 PM PDT Approved by: Olivia Root MD on 07/02/2023 3:58 PM PDT Station ID: [id number]
== END 2023-07-02 13:23 | disposition home or self-care (01) ==
LOC: DI 13:22
PROVIDERS: ATTEND Orthopaedic Surgery
DX: M25.461 Effusion, right knee (principal); Z96.651 Presence of right artificial knee joint; M25.9 Joint disorder, unspecified

== ENCOUNTER 2023-08-16 13:34 | Outpatient (CLI) | payer MEDICARE ==
--- NOTE | 2023-08-16 16:17 | MRI Report ---
PROCEDURE: Cervical Spine WO INDICATIONS: ROSYE DIFFICULTY, SPASTIC GAIT TECHNIQUE: Noncontrast sagittal T1 spin echo and T2 fast spin echo, sagittal STIR, foraminal oblique sagittal T2 fast spin echo, and axial gradient echo or T2 fast spin echo through the cervical spine. COMPARISON: None. FINDINGS: Image quality: Excellent. Alignment and Curvature: There is normal bony alignment. Bone Marrow: Marrow demonstrates normal overall signal. Spinal Cord: Visualized spinal cord has normal size and signal. No cerebellar tonsillar herniation. Paraspinous Soft Tissues: No paravertebral masses. Prevertebral soft tissues are normal in thicknes s. C2-C3: Disc bulge. No canal stenosis. Left uncovertebral joint hypertrophy and bilateral facet hyper trophy. Mild right foraminal narrowing and moderate left foraminal narrowing. C3-C4: Severe chronic disc height loss. Diffuse posterior disc plus osteophyte flattening the ventr al cord. Mild congenitally short pedicles. Borderline canal stenosis. AP diameter of the central alexandrea l is 10.0 mm. Bilateral uncovertebral joint hypertrophy, prominent on the right. Bilateral facet hype rtrophy. Severe right foraminal narrowing and moderate to severe left foraminal narrowing. Right grea ter than left foraminal C4 nerve root impingement. C4-C5: Diffuse disc bulge with minimal superimposed central posterior disc protrusion mildly indenti ng on the cord. Borderline canal stenosis. AP diameter of the central canal measures 10.3 mm. Bilater al uncovertebral joint hypertrophy and facet hypertrophy. Moderate to severe bilateral foraminal narr owing with a degree of bilateral foraminal C5 nerve root impingement. C5-C6: Chronic disc height loss. Diffuse posterior disc bulge with minimal shallow superimposed righ t paracentral disc protrusion. There is mild indentation on the ventral cord. No significant canal st enosis. AP diameter of the central canal is 11.5 mm. Bilateral uncovertebral joint hypertrophy. Bilat eral facet hypertrophy. Moderate bilateral foraminal narrowing with flattening deformity on the exiti ng bilateral C6 nerve roots. C6-C7: Mild chronic disc height loss. Posterior disc bulge. No canal stenosis. Moderate left foramin al narrowing with flattening deformity on the exiting left C7 nerve root. C7-T1: Disc bulge. No canal stenosis. Moderate right foraminal narrowing and [id number] left f oraminal narrowing. IMPRESSION: 1. There is diffuse underlying spondylitic change. 2. Although disc material abuts the cord in multiple locations, stenosis is only borderline at C3-C4 and C4-C5. 3. Significant multilevel foraminal narrowing as described above. Findings include severe right keaton inal narrowing. Moderate to severe left foraminal narrowing at C3-C4 as well as severe bilateral fora anabela narrowing at C4-C5. Reviewed by: Guillermo Figueroa MD on 08/16/2023 4:15 PM PDT Approved by: Guillermo Figueroa MD on 08/16/2023 4:15 PM PDT Station ID: [id number]
--- NOTE | 2023-08-16 16:26 | MRI Report ---
PROCEDURE: Lumbar Spine WO INDICATIONS: ROSEY DIFFICULTY, SPASTIC GAIT TECHNIQUE: Noncontrast sagittal T1 spin echo and T2 fast echo, sagittal STIR, axial T1 and T2 fast spin echo thr ough the lumbar spine. In cases with scoliosis, additional coronal T2 fast spin echo may be performe d. COMPARISON: None. FINDINGS: Image quality: Excellent. Alignment and Curvature: There are 4 true lumbar vertebral bodies. Immediately above the lowest lumba r vertebral body is a vertebral body with very small ribs. This level will be described as L1 for the purposes of this dictation. Bone Marrow: Marrow is of normal overall signal. No acute vertebral body compression fractures. Spinal Cord: Conus medullaris terminates at the L1 level. Visualized cord demonstrates normal signa l and size. Paraspinous Soft Tissues: No paravertebral masses. T11-T12: Mild facet hypertrophy. Mild bilateral foraminal narrowing. T12-L1: Mild disc bulge. No canal stenosis or foraminal stenosis. L1-L2: Disc bulge. No canal stenosis or foraminal stenosis. L2-L3: Chronic disc height loss. Posterior disc plus osteophyte. Facet hypertrophy. Borderline can al stenosis. No significant foraminal stenosis. L3-L4: Chronic disc height loss. Disc bulge. Facet hypertrophy. Borderline canal stenosis. Moderate bilateral foraminal narrowing, left greater than right. There is a degree of flattening of the bilat eral L4 nerve root sleeves in the foramina. L4-L5: Disc bulge. Facet and ligament hypertrophy. Epidural lipomatosis. Mild to moderate canal subhash nosis. Reference axial image 33 of series 8. L5-S1: Posterior disc bulge. Mild facet hypertrophy. No canal stenosis. There is mild to moderate r ight foraminal narrowing. There is a far left lateral disc protrusion which results in moderate to se efrain left foraminal narrowing and a degree of impingement of the left L5 nerve root far laterally in the foramen. IMPRESSION: 1. Please note the numbering system utilized in this dictation. It describes a vertebral body that hernandes s very small hypoplastic ribs as L1. Therefore, there are 5 lumbar vertebral bodies described in this report. If there is consideration for surgery in this patient, careful correlation for correct surgi devendra level is required. 2. There is multilevel underlying facet arthropathy. 3. Borderline canal stenosis at L3-L4 and mild to moderate canal stenosis at L4-L5. 4. Multilevel foraminal narrowing as described above. Findings include a far left lateral disc protru miller at L5-S1 which impinges on the left L5 nerve root far laterally in the foramen. Reviewed by: Guillermo Figueroa MD on 08/16/2023 4:24 PM PDT Approved by: Guillermo Figueroa MD on 08/16/2023 4:24 PM PDT Station ID: [id number]
== END 2023-08-16 13:35 | disposition home or self-care (01) ==
LOC: DI 13:34
PROVIDERS: ATTEND Psychiatry & Neurology Neurology
DX: R26.1 Paralytic gait (principal); M51.17 Intervertebral disc disorders with radiculopathy, lumbosacral region; M47.27 Other spondylosis with radiculopathy, lumbosacral region; M47.816 Spondylosis without myelopathy or radiculopathy, lumbar region; M48.061 Spinal stenosis, lumbar region without neurogenic claudication; M50.11 Cervical disc disorder with radiculopathy, high cervical region; M50.121 Cervical disc disorder at C4-C5 level with radiculopathy; M47.22 Other spondylosis with radiculopathy, cervical region; M48.02 Spinal stenosis, cervical region

== ENCOUNTER 2023-10-21 10:50 | Emergency (ER) | payer MEDICARE ==
--- NOTE | 2023-10-21 11:25 | ED Physician Documentation ---
PD HPI DYSPNEA - Stated complaint Stated Complaint: HBP,HIGH HEART RATE - Chief complaint Chief Complaint: Cardiac - Additional information Additional information: 88-year-old male with history of hypertension, A-fib. Patient is anticoagulated on Eliquis. Patient reports that he started feeling ill on Wednesday and is worried about his blood pressure being in the 140s over 100s and heart rates in the 80s to 100s at rest which feels abnormal to him. He also reports he has been feeling intermittent chest pain twinges with dizziness upon awaking. He has early symptoms of Parkinson's. He has no focal neurological deficits but says that the dizziness has been chronic but it was way more severe on Wednesday in the last couple days than what it has been in the past. PD PAST MEDICAL HISTORY - Past Medical History Past Medical History: Yes Cardiovascular: Hypertension, Atrial fibrillation Respiratory: None Neuro: Parkinson's Endocrine/Autoimmune: None GI: None HEENT: Chronic vision loss, Other Psych: None Musculoskeletal: None Derm: None - Past Surgical History Past Surgical History: Yes Ortho: Knee replacement - Present Medications Home Medications: Ambulatory Orders Medication Instructions Recorded Confirmed Brimonidine 0.2% Ophth Drops 1 drops OP DAILY 03/06/20 03/28/20 [Alphagan P 0.2% Ophth Drops] Loratadine [Claritin] 10 mg PO PRN PRN 03/06/20 03/28/20 Losartan Potassium 50 mg PO DAILY 03/06/20 03/28/20 hydroCHLOROthiazide 12.5 mg PO DAILY 03/06/20 03/28/20 [Hydrochlorothiazide] Apixaban [Eliquis] 1 tab PO DAILY 03/28/20 03/28/20 Metoprolol Succinate [Toprol Xl] 1 tab PO DAILY 03/28/20 03/28/20 - Allergies Allergies/Adverse Reactions: Allergies Allergy/AdvReac Type Severity Reaction Status Date / Time No Known Drug Allergies Allergy Verified 03/06/20 09:03 - Social History Does the pt smoke?: No Smoking Status: Never smoker Does the pt drink ETOH?: Yes Does the pt have substance abuse?: No - Immunizations Immunizations are current?: Yes PD ED PE NORMAL - Vitals Vital signs reviewed: Yes - General General: Alert and oriented X 3, No acute distress, Well developed/nourished - HEENT HEENT: Atraumatic, PERRL, EOMI - Cardiac Cardiac: RRR - Respiratory Respiratory: No respiratory distress, Clear bilaterally - Abdomen Abdomen: Normal bowel sounds, Soft, Non tender - Back Back: No CVA TTP - Derm Derm: Normal color, Warm and dry, No rash - Extremities Extremities: No deformity, No edema, No calf tenderness / cord - Neuro Neuro: Alert and oriented X 3, 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) Computer interpretation: Agree with computer - Labs Labs: Laboratory Tests 10/21/23 10/21/23 11:35 11:35 WBC 6.9 RBC 4.47 L Hgb 14.4 Hct 42.8 MCV 95.7 H MCH 32.2 H MCHC 33.6 RDW 12.0 Plt Count 210 MPV 10.1 Neut # (Auto) 4.4 Lymph # (Auto) 1.4 L Stevens # (Auto) 0.9 Eos # (Auto) 0.2 Baso # (Auto) 0.1 Absolute Nucleated RBC 0.00 Nucleated RBC % 0.0 Sodium 138 Potassium 3.7 Chloride 105 Carbon Dioxide 27 Anion Gap 6.0 BUN 20 Creatinine 0.7 Estimated GFR (MDRD) 107 Glucose 103 Calcium 8.7 Total Bilirubin 0.8 AST 18 ALT 12 Alkaline Phosphatase 46 Troponin I High Sens 7.1 Total Protein 6.0 L Albumin 3.8 Globulin 2.2 Albumin/Globulin Ratio 1.7 Lipase 30 - Rads (name of study) Chest x-ray Relevant Findings:: Final report received, EMP independent interpretation of test, Other (No acute cardiopulmonary abnormalities) Head CT Relevant Findings:: Final report received, EMP independent interpretation of test, Other (Age-related volume loss and severe small vessel ischemic changes no evidence of acute intracranial process) Angio head and neck CT Relevant Findings:: Final report received, EMP independent interpretation of test, Other (No significant intracranial arterial abnormality and no significant abnormality seen within the arteries of the neck) PD Medical Decision Making - ED course ED course: 88-year-old male presents emergency department for concerns of hypertension, twinges of chest pain, increased dizziness. He has no focal neurological deficitsMake me less suspicious or concern for possible TIA stroke. NIH score 0. He currently denies any symptoms while laying in bed at rest Exam without evidence of volume overload so doubt heart failure. EKG without signs of active ischemia. Given the timing of pain to ER presentation, single troponin was negative so doubt NSTEMI. Presentation not consistent with acute PE (Wells low risk low),pneumothorax (not visualized on chest xr), thoracic aortic dissection, pericarditis, tamponade, pneumonia (no infectious symptoms, clear chest xr), myocarditis (no recent illness, neg trop). HEART score:3 Office are complete for further evaluation and fairly unremarkable low-protein no anemia no electrolyte abnormalities. No leukocytosis. Head CT and CT angio head and neck was also complete for further evaluation given his age and the symptoms of dizziness but all were found to be unremarkable. At this point time patient is safe for discharge return precautions given patient told to follow-up with [facility] care provider for further evaluation and to discuss today's ER visit. Departure - Departure Disposition: 01 Home, Self Care Clinical Impression: Tachycardia Hypertension Qualifiers: Hypertension type: unspecified Qualified Code(s): I10 - Essential (primary) hypertension Chest pain Qualifiers: Chest pain type: unspecified Qualified Code(s): R07.9 - Chest pain, unspecified Instructions: ED Chest Pain Atypical Unkn Cause Comments: Thank you for trusting us with your care. We have evaluated your EKG, labs, head CT, chest x-ray and we are not seeing any acute abnormalities at this point in time. Please follow-up with your primary care provider for further evaluation about possibly a new medication or change in your medications to manage your your blood pressure. Please come back to the ER for having any worsening shortness of breath, weakness on one side your body, vision changes, severe worsening dizziness or any other concerning emergent symptoms. Forms: PCP List Discharge Date/Time: 10/21/23 14:12
--- NOTE | 2023-10-21 11:35 | XRAY Report ---
PROCEDURE: Chest 1V INDICATIONS: Chest pain TECHNIQUE: One view of the chest was acquired. COMPARISON: Humerus 03/28/2020. FINDINGS: Surgical changes and devices: None. Lungs and pleura: No pleural effusions or pneumothorax. Lungs are clear. Mediastinum: Mediastinal contours appear normal. Heart size is normal. Bones and chest wall: No suspicious bony lesions. Overlying soft tissues appear unremarkable. IMPRESSION: No acute cardiopulmonary process. Reviewed by: Guillermo Figueroa MD on 10/21/2023 11:33 AM PDT Approved by: Guillermo Figueroa MD on 10/21/2023 11:33 AM PDT Station ID: [id number]
[2023-10-21 11:39] VITALS: BP 134/106; O2SAT 96
[2023-10-21 11:41] LABS: BASOPHILS # (AUTO) 0.1 10^3/uL (0.0-0.1); BASOPHILS % (AUTO) 0.7 %; EOSINOPHILS # (AUTO) 0.2 10^3/uL (0.0-0.7); EOSINOPHILS % (AUTO) 2.5 %; HCT - HEMATOCRIT 42.8 % (42.0-52.0); HGB - HEMOGLOBIN 14.4 g/dL (14.0-18.0); LYMPHOCYTES # (AUTO) 1.4 10^3/uL (1.5-3.5); LYMPHOCYTES % (AUTO) 20.5 %; MEAN CORPUSCULAR HEMOGLOBIN 32.2 pg (27.0-31.0); MEAN CORPUSCULAR HGB CONC 33.6 g/dL (32.0-36.0); MEAN CORPUSCULAR VOLUME 95.7 fL (80.0-94.0); MEAN PLATELET VOLUME 10.1 fL (7.4-11.4); MONOCYTES # (AUTO) 0.9 10^3/uL (0.0-1.0); MONOCYTES % (AUTO) 12.4 %; NEUTROPHILS # (AUTO) 4.4 10^3/uL (1.5-6.6); NEUTROPHILS % (AUTO) 63.2 %; PLT - PLATELET COUNT 210 10^3/uL (130-450); RED BLOOD COUNT 4.47 10^6/uL (4.70-6.10); WHITE BLOOD COUNT 6.9 x10^3/uL (4.8-10.8)
[2023-10-21 11:55] LABS: ALBUMIN 3.8 g/dL (3.2-5.5); ALBUMIN/GLOBULIN RATIO 1.7 (1.0-2.2); BILIRUBIN,TOTAL 0.8 mg/dL (0.2-1.0); CALCIUM 8.7 mg/dL (8.5-10.3); CREATININE 0.7 mg/dL (0.6-1.3); POTASSIUM 3.7 mmol/L (3.5-4.5)
[2023-10-21 12:00] LABS: TROPONIN I HIGH SENSITIVITY 7.1 ng/L (2.3-19.7)
[2023-10-21] MEDS ORDERED: iohexoL-300 100 ML VIAL ONE (12:02)
[2023-10-21] MEDS: iohexoL-300 100 ML VIAL IVP ONE (12:52)
--- NOTE | 2023-10-21 13:31 | CT Report ---
PROCEDURE: Head WO INDICATIONS: dizziness TECHNIQUE: Noncontrast 4.5 mm thick angled axial sections acquired from the foramen magnum to the vertex. For r adiation dose reduction, the following was used: automated exposure control, adjustment of mA and/or kV according to patient size. COMPARISON: Brain MRI dated 01/07/2022. FINDINGS: Image quality: Excellent. CSF spaces: Basal cisterns are patent. No extra-axial fluid collections. Ventricles are normal in size and shape. Brain: No midline shift. No intracranial masses or hemorrhage. [place]-white matter interface is norm al. Intracranial carotid calcifications. Age-related volume loss and severe small vessel ischemic ch clif. Skull and face: Calvarium and visualized facial bones are intact, without suspicious lesions. Sinuses: Visualized sinuses and mastoids are clear. IMPRESSION: 1. Age-related volume loss and severe small vessel ischemic change. 2. No CT evidence of acute cranial process. Comment: If suspect acute infarct, recommend brain MRI Reviewed by: Guillermo Figueroa MD on 10/21/2023 1:29 PM PDT Approved by: Guillermo Figueroa MD on 10/21/2023 1:29 PM PDT Station ID: [id number]
--- NOTE | 2023-10-21 13:38 | CT Report ---
PROCEDURE: Angio Head/Neck INDICATIONS: dizziness TECHNIQUE: After the administration of intravenous contrast, 1 mm thick sections acquired from the aortic arch t hrough the [place]. 3-dimensional wmftfig-bcupechyo-yvlktkjtxh (MIP) and/or volume renderin g reformats were acquired of the central intracranial vasculature and neck separately. For radiation dose reduction, the following was used: automated exposure control, adjustment of mA and/or kV acco rding to patient size. CONTRAST: Omni 300 80ml COMPARISON: CT head from today, brain MRI dated 01/07/2022. FINDINGS: Image quality: Diagnostic. HEAD CT: CSF Spaces: Basal cisterns are patent. No extra-axial fluid collections. Ventricles are normal in size and shape. Brain: Accompanying head CT demonstrates severe small vessel ischemic change and no evidence acute in tracranial process. Skull and face: Calvarium and visualized facial bones appear intact, without suspicious lesions. Sinuses: Visualized sinuses and mastoids are clear. HEAD CT ANGIOGRAPHY: Anterior circulation: Intracranial internal carotid arteries are normal in size and flow. The flow within the paired anterior cerebral arteries is normal and symmetric. The flow within the middle cer ebral arteries is normal and symmetric. The anterior communicating artery is seen. No aneurysms are seen. Posterior circulation: Visualized portions of the vertebral arteries demonstrate normal caliber, and join to form a normal appearing basilar artery. Flow within the posterior cerebral arteries is norm al and symmetric. No aneurysms are seen. NECK CT ANGIOGRAPHY: Carotid system: The great vessels demonstrate a conventional anatomy as they arise from the aortic a rch. The origins of the common carotid arteries appear patent. The common carotid arteries demonstr ate normal caliber and courses. The bifurcation regions are both widely patent. The internal caroti d arteries demonstrate normal calibers and courses. Posterior circulation: The origins of the vertebral arteries both appear widely patent. The more martinez perior extracranial portions of both vertebral arteries also demonstrate normal courses and calibers. They join to form a normal appearing basilar artery. Soft tissues: Visualized neck soft tissues demonstrate no suspicious abnormalities. Bones: No suspicious bony lesions. Visualized cervical spine appears normally aligned. IMPRESSION: No significant intracranial arterial abnormality is seen. No significant abnormality is seen within the arteries of the neck. The estimate of stenosis included in the report of the imaging study was calculated using the NASCET method Reviewed by: Guillermo Figueroa MD on 10/21/2023 1:37 PM PDT Approved by: Guillermo Figueroa MD on 10/21/2023 1:37 PM PDT Station ID: [id number]
== END 2023-10-21 14:12 | disposition home or self-care (01) ==
LOC: ED 10:50
DX: I10 Essential (primary) hypertension (principal); R00.0 Tachycardia, unspecified; R07.9 Chest pain, unspecified; I48.91 Unspecified atrial fibrillation; G20.A1 Parkinson's disease without dyskinesia, without mention of fluctuations; Z79.01 Long term (current) use of anticoagulants; Z79.899 Other long term (current) drug therapy
CPT/HCPCS: 36415; 70450; 70496; 70498; 71045; 80053; 83690; 84484; 85025; 93005; 99284; Q9967